=== PATIENT | male | born 1970 | race African-American/Black ===

== ENCOUNTER 2023-12-09 09:30 | Emergency (ER) | payer SELFPAY ==
[~2023-12-09] VITALS: Ht 175.3 cm; Wt 83.0 kg
[2023-12-09 09:33] VITALS: O2SAT 100
[2023-12-09 09:47] VITALS: O2SAT 100
[2023-12-09 10:22] LABS: CLARITY URINE CLEAR (CLEAR); COLOR URINE YELLOW (YELLOW); GLUCOSE URINE NEGATIVE (NEGATIVE); KETONES URINE NEGATIVE (NEGATIVE); LEUKOCYTE ESTERASE URINE NEGATIVE (NEGATIVE); NITRITE URINE NEGATIVE (NEGATIVE); OCCULT BLOOD URINE NEGATIVE (NEGATIVE); PROTEIN URINE NEGATIVE (NEGATIVE); UROBILINOGEN URINE 0.2 E.U./dL (0.2-1.0)
[2023-12-09 11:10] LABS: BASOPHILS % 0.8 % (0.0-2.0); EOSINOPHILS % 1.5 % (0.0-5.0); HEMATOCRIT. 47.2 % (42.0-52.0); HEMOGLOBIN. 15.7 g/dL (14.0-18.0); LYMPHOCYTES % 41.6 % (20.0-50.0); MEAN CORPUSCULAR HEMOGLOBIN 29.2 pg (28.0-32.0); MEAN CORPUSCULAR HGB CONC 33.2 g/dL (31.0-37.0); MEAN PLATELET VOLUME 7.2 fl (7.4-10.4); MONOCYTES % 8.7 % (2.0-8.0); NEUTROPHILS % 47.4 % (40.0-76.0); PLATELET 261 x1000/uL (130-400); RED BLOOD CELL COUNT 5.36 mill/uL (4.7-6.1); RED CELL DISTRIBUTION WIDTH 13.9 % (11.6-14.6); WHITE BLOOD COUNT 3.2 x1000/uL (4.5-11.0)
[2023-12-09 11:15] LABS: CHLORIDE 105 mEq/L (98-107); POTASSIUM 4.8 mEq/L (3.5-5.1); SODIUM 138 mEq/L (136-145)
[2023-12-09 11:16] LABS: CARBON DIOXIDE 29 mEq/L (21-32)
[2023-12-09 11:17] LABS: CALCIUM 9.2 mg/dL (8.7-10.4)
[2023-12-09 11:21] LABS: CREATININE 1.3 mg/dL (0.6-1.3); GLUCOSE 109 mg/dL (70-105)
[2023-12-09 11:22] LABS: UREA NITROGEN BLOOD 10 mg/dL (9-23)
[2023-12-09 11:23] LABS: ALANINE AMINOTRANSFERASE 27 IU/L (10-49); ALBUMIN 4.3 g/dL (3.2-4.8); ASPARTATE AMINOTRANSFERASE 27 IU/L (<34)
[2023-12-09 11:24] LABS: BILIRUBIN TOTAL 0.8 mg/dL (0.1-1.0); PROTEIN TOTAL 7.3 g/dL (6.0-8.3)
[2023-12-09 11:30] VITALS: BP_SYST 135; PULSE 69; RESP 16; TEMP 98.2
[2023-12-09] MEDS: ACETAMINOPHEN 325MG TABLET PO ONE (11:30)
[2023-12-09] MEDS: KETOROLAC 30MG/ML VIAL IM ONE (11:30)
[2023-12-09] MEDS: LIDOCAINE 5% PATCH TOP SCH (11:30)
== END 2023-12-09 15:01 | disposition home or self-care (01) ==
LOC: ER 09:30
DX: S39.011A Strain of muscle, fascia and tendon of abdomen, initial encounter (principal); X58.XXXA Exposure to other specified factors, initial encounter; Y93.89 Activity, other specified; Y92.89 Other specified places as the place of occurrence of the external cause; Y99.8 Other external cause status
CPT/HCPCS: 99283; 80053; 81003; 83690; 85025; 36415; 96372; J1885